=== PATIENT | female | born 1960 | race Caucasian/White ===

== ENCOUNTER → 2017-04-14 | Outpatient (CLI) | payer OTHER ==
[~2017-04-14] MED LIST: ATOR10TA82 PO; CARI350T28 PO; CYAN100073 PO; ESCI10TA17 PO; KETO200T PO; KLN/5 PO; LISI-461 PO; LISI20TA11 PO; METF-384 PO; METF500T5 PO; OXYC-57 PO; TERB250T22 PO
== END | disposition home or self-care (01) ==
LOC: C.LABSPEC 17:49
PROVIDERS: ATTEND Obstetrics & Gynecology
DX: N94.9 Unspecified condition associated with female genital organs and menstrual cycle (principal)

== ENCOUNTER → 2017-05-05 | Outpatient (CLI) | payer OTHER | END | disposition home or self-care (01) | LOC: C.LABSPEC 17:49 | PROVIDERS: ATTEND Obstetrics & Gynecology | DX: N76.0 Acute vaginitis (principal) ==

== ENCOUNTER 2017-06-22 19:10 | Emergency (ER) | payer OTHER ==
[~2017-06-22] VITALS: Ht 154.9 cm; Wt 64.9 kg
[2017-06-22 19:19] VITALS: TEMP 36.7; Ht 154.9 cm; Wt 64.9 kg
[2017-06-22] MEDS ORDERED: ALUMINUM/MAGNESIUM SUSP 30 ML UDC PO STA (20:00)
[2017-06-22] MEDS ORDERED: LIDOCAINE HCL 2% VISC SOLN 20 ML UDC PO STA (20:00)
[2017-06-22 20:25] LABS: BASO % 0.2 %; BASO ABS # 0.02 K/uL (0-0.2); EOS % 0.5 %; EOS ABS # 0.05 K/uL (0-0.5); HEMATOCRIT 41.2 % (37-47); HEMOGLOBIN 14.4 g/dL (12.0-16.0); IG# 0.01 K/uL (0.00-0.02); LYMPH % 29.3 %; LYMPH ABS # 2.93 K/uL (1.2-3.4); MEAN CELL VOLUME 88.4 fL (80-100); MEAN CORPUSCULAR HEMOGLOBIN 30.9 pg (25-34); MEAN PLATELET VOLUME 8.8 fL (7.4-10.4); NEUT % 63.9 %; PLATELET COUNT 320 K/uL (130-400); RED CELL DISTRIBUTION WIDTH CV 13.1 % (11.5-14.5); RED CELL DISTRIBUTION WIDTH SD 42.3 fL (36.4-46.3); WHITE BLOOD COUNT 10.01 K/uL (4.8-10.8)
[2017-06-22] MEDS ORDERED: CYAN100073 (20:36)
[2017-06-22] MEDS ORDERED: METF-384 PO (20:36)
[2017-06-22] MEDS ORDERED: CARI350T28 PO (20:36)
[2017-06-22] MEDS ORDERED: KETO200T PO (20:36)
[2017-06-22] MEDS ORDERED: CLON0.5T3 PO (20:36)
[2017-06-22] MEDS ORDERED: ATOR10TA82 PO (20:36)
[2017-06-22] MEDS ORDERED: TERB250T51 PO (20:36)
[2017-06-22] MEDS ORDERED: LISI-461 PO (20:36)
[2017-06-22 20:37] LABS: ALBUMIN 4.6 gm/dl (3.4-5.0); ALT/SGPT 36 U/L (12-78); AST/SGOT 17 U/L (15-37); BLOOD UREA NITROGEN 12 mg/dl (7-18); CALCIUM 9.6 mg/dl (8.5-10.1); CARBON DIOXIDE 29 mmol/L (21-32); CREATININE 0.79 mg/dl (0.60-1.20); GLUCOSE 119 mg/dl (70-99); LIPASE 146 U/L (73-393); POTASSIUM 3.8 mmol/L (3.5-5.1); PTT PATIENT 23.5 SECONDS (21.0-31.0); SODIUM 136 mmol/L (136-145)
[2017-06-22] MEDS ORDERED: OXYC-57 PO (20:37)
[2017-06-22 20:42] LABS: ALKALINE PHOSPHATASE 72 U/L (45-117); CKMB < 0.5 ng/ml (0.5-3.6); TOTAL PROTEIN 9.3 gm/dl (6.4-8.2)
--- NOTE | 2017-06-22 20:44 | DIAGNOSTIC IMAGING REPORT ---
CHEST ONE VIEW PORTABLE CLINICAL HISTORY: Evaluate Fever/Sepsis COMPARISON STUDY: No previous studies for comparison. FINDINGS: Lung volumes are normal. No pneumothorax or pleural effusion is noted. There is no consolidation or evidence for pulmonary edema. Cardiomediastinal silhouette is unremarkable. IMPRESSION: No acute cardiopulmonary findings. Electronically signed by: Stephon Sosa M.D. 06/22/2017 8:43 PM Dictated Date/Time: 06/22/2017 8:42 PM
--- NOTE | 2017-06-22 21:05 | EMERGENCY ROOM VISIT NOTE ---
History Report prepared by Vic: Angely Veronica Under the Supervision of: Dr. Andres Peace D.O. First contact with patient: 19:59 Chief Complaint: CHEST PAIN Stated Complaint: CHEST PAIN Nursing Triage Summary: see triage note. History of Present Illness The patient is a 56 year old female who presents to the Emergency Room with complaints of worsening chest pain starting a week and a half ago. The patient states that she started to feel the chest pain after dinner one night while lying on the couch. She states that it went from one shoulder to the other. She states that at the time she had ear pain and a sore throat that she thought was just a cold. She reports that she took Airborne which offered relief for her ear and throat. The patient states that she took her anxiety medication for the chest pain which offered no relief. She states that she went to the [facility] the next day because the chest pain started to radiate to her back and neck. She reports that they thought that she had a virus or GERD. The patient states that she was given an inhaler to try, which offered no relief, and told to start Zantac. She states that she has been taking Zantac for 6 days once a day before dinner. She reports that it helped the first two nights she took it, but doesn't help anymore. She states that it has since worsened and that is why she came to the ED tonight. She currently describes the pain as a tightness. The patient reports that the neck and back pain come with the chest pain. She notes that last night it woke her up out of her sleep and "felt like someone was choking her." The patient complains of a sore throat, hoarse voice, neck pain, back pain, nausea, and dizziness. The patient notes that she has been sleeping elevated and has a GI appointment in 3 weeks. Source of History: patient Onset: a week and a half ago Position: chest Quality: other (tightness) Timing: worsening Modifying Factors (Relieving): other (Airborne, Zantac) Associated Symptoms: + sorethroat, + neck pain, + nausea, + back pain Note: The patient complains of a hoarse voice and dizziness. Review of Systems See HPI for pertinent positives & negatives. A total of 10 systems reviewed and were otherwise negative. Past Medical & Surgical Medical Problems: (1) Diabetes (2) HTN (hypertension) Surgical Problems: (1) History of cholecystectomy (2) Hx of section Family History Diabetes mellitus Heart disease Hypertension Social History Smoking Status: Never Smoker Smokeless Tobacco Use: No Alcohol Use: none Marital Status: Housing Status: lives with family Occupation Status: employed Current/Historical Medications Scheduled Atorvastatin (Lipitor), 10 MG PO DAILY Carisoprodol (Soma), 175 MG PO HS Clonazepam (Klonopin), 0.5 MG PO DAILY Ketoconazole (Nizoral), 50 MG PO BID Lisinopril (Zestril), Unknown Dose PO DAILY Metformin Hcl (Glucophage), 500 MG PO BID Terbinafine Hcl (Lamisil), 125 MG PO DAILY Scheduled PRN Oxycodone/Acetaminophen 5MG/325MG (Percocet 5MG/325MG), 0.5 TABLET PO UD PRN for Pain Miscellaneous Medications Cyanocobalamin (B12) Allergies Coded Allergies: Amoxicillin (Unverified Allergy, Unknown, hives, 06/22/17) Iodine (Unverified Allergy, Unknown, vomiting, 06/22/17) Penicillins (Unverified Allergy, Unknown, hives, 06/22/17) Shellfish (Unverified Allergy, Unknown, vomiting, 06/22/17) Uncoded Allergies: IODINE (Allergy, Unknown, 05/25/02) N (Allergy, Unknown, 05/25/02) NO (Allergy, Unknown, 05/25/02) PCN AMOXICILLIN IBUPROFEN (Allergy, Unknown, 05/25/02) SHELLFISH IODINE (Allergy, Unknown, 05/25/02) Physical Exam Vital Signs Date Time Temp Pulse Resp B/P (MAP) Pulse Ox O2 Delivery O2 Flow Rate FiO2 06/22/17 21:20 89 18 153/84 99 Room Air 06/22/17 20:21 80 06/22/17 20:18 78 18 137/80 96 Room Air 06/22/17 19:19 36.7 92 18 144/89 99 Room Air Physical Exam CONSTITUTIONAL/VITAL SIGNS: Reviewed / noted above. GENERAL: Non-toxic in appearance. INTEGUMENTARY: Warm, dry, and [place]. HEAD: Normocephalic. EYES: without scleral icterus or trauma. ENT/OROPHARYNX: clear and moist. LYMPHADENOPATHY/NECK: Is supple without lymphadenopathy or meningismus. RESPIRATORY: Lungs clear and equal. CARDIOVASCULAR: Regular rate and rhythm. GI/ABDOMEN: Soft and nontender. No organomegaly or pulsatile mass. No rebound or guarding. Normal bowel sounds. EXTREMITIES: Warm and well perfused. BACK: No CVA tenderness. NEUROLOGICAL: Intact without focal deficits. PSYCHIATRIC: normal affect. MUSCULOSKELETAL: Normally developed with good muscle tone. Medical Decision & Procedures ER Provider Diagnostic Interpretation: Radiology results as stated below per my review and radiologist interpretation: CHEST ONE VIEW PORTABLE CLINICAL HISTORY: Evaluate Fever/Sepsis COMPARISON STUDY: No previous studies for comparison. FINDINGS: Lung volumes are normal. No pneumothorax or pleural effusion is noted. There is no consolidation or evidence for pulmonary edema. Cardiomediastinal silhouette is unremarkable. IMPRESSION: No acute cardiopulmonary findings. Electronically signed by: Stephon Sosa M.D. 06/22/2017 8:43 PM Dictated Date/Time: 06/22/2017 8:42 PM Laboratory Results 06/22/17 20:06 Red Blood Count 4.66, Mean Corpuscular Volume 88.4, Mean Corpuscular Hemoglobin 30.9, Mean Corpuscular Hemoglobin Concent 35.0, Mean Platelet Volume 8.8, Neutrophils (%) (Auto) 63.9, Lymphocytes (%) (Auto) 29.3, Monocytes (%) (Auto) 6.0, Eosinophils (%) (Auto) 0.5, Basophils (%) (Auto) 0.2, Neutrophils # (Auto) 6.40, Lymphocytes # (Auto) 2.93, Monocytes # (Auto) 0.60, Eosinophils # (Auto) 0.05, Basophils # (Auto) 0.02 06/22/17 20:06 Test 06/22/17 20:06 White Blood Count 10.01 K/uL (4.8-10.8) Red Blood Count 4.66 M/uL (4.2-5.4) Hemoglobin 14.4 g/dL (12.0-16.0) Hematocrit 41.2 % (37-47) Mean Corpuscular Volume 88.4 fL (80-100) Mean Corpuscular Hemoglobin 30.9 pg (25-34) Mean Corpuscular Hemoglobin Concent 35.0 g/dl (32-36) Platelet Count 320 K/uL (130-400) Mean Platelet Volume 8.8 fL (7.4-10.4) Neutrophils (%) (Auto) 63.9 % Lymphocytes (%) (Auto) 29.3 % Monocytes (%) (Auto) 6.0 % Eosinophils (%) (Auto) 0.5 % Basophils (%) (Auto) 0.2 % Neutrophils # (Auto) 6.40 K/uL (1.4-6.5) Lymphocytes # (Auto) 2.93 K/uL (1.2-3.4) Monocytes # (Auto) 0.60 K/uL (0.11-0.59) Eosinophils # (Auto) 0.05 K/uL (0-0.5) Basophils # (Auto) 0.02 K/uL (0-0.2) RDW Standard Deviation 42.3 fL (36.4-46.3) RDW Coefficient of Variation 13.1 % (11.5-14.5) Immature Granulocyte % (Auto) 0.1 % Immature Granulocyte # (Auto) 0.01 K/uL (0.00-0.02) Prothrombin Time 10.9 SECONDS (9.0-12.0) Prothromb Time International Ratio 1.0 (0.9-1.1) Activated Partial Thromboplast Time 23.5 SECONDS (21.0-31.0) Partial Thromboplastin Ratio 0.9 Anion Gap 7.0 mmol/L (3-11) Est Creatinine Clear Calc Drug Dose 69.4 ml/min Estimated GFR () 97.7 Estimated GFR (Non- 84.3 BUN/Creatinine Ratio 15.4 (10-20) Calcium Level 9.6 mg/dl (8.5-10.1) Total Bilirubin 0.2 mg/dl (0.2-1) Direct Bilirubin < 0.1 mg/dl (0-0.2) Aspartate Amino Transf (AST/SGOT) 17 U/L (15-37) Alanine Aminotransferase (ALT/SGPT) 36 U/L (12-78) Alkaline Phosphatase 72 U/L (45-117) Total Creatine Kinase 40 U/L (26-192) Creatine Kinase MB < 0.5 ng/ml (0.5-3.6) Creatine Kinase MB Ratio (0-3.0) Troponin I < 0.015 ng/ml (0-0.045) Total Protein 9.3 gm/dl (6.4-8.2) Albumin 4.6 gm/dl (3.4-5.0) Lipase 146 U/L (73-393) Laboratory results as stated above per my review. Medications Administered Medications (Trade) Dose Ordered Sig/Gracy Route Start Time Stop Time Status Last Admin Dose Admin Al Hydroxide/Mg Hydroxide (Maalox Susp) 30 ml NOW STAT PO 06/22/17 20:00 06/22/17 20:02 DC 06/22/17 20:32 30 ML Lidocaine HCl (Viscous Lidocaine 2% Soln) 10 ml NOW STAT PO 06/22/17 20:00 06/22/17 20:02 DC 06/22/17 20:32 10 ML Morphine Sulfate (MoRPHine SULFATE INJ) 4 mg NOW STAT IV 06/22/17 21:13 06/22/17 21:14 DC 06/22/17 21:20 4 MG ECG Per My Interpretation Indication: chest pain Rate (beats per minute): 85 Rhythm: normal sinus Findings: no ectopy, other (no ST elevations) ED Course 2001: Previous medical records were reviewed. The patient was evaluated in room C8. A complete history and physical examination was performed. 1999: Ordered Lidocaine HCl 10 ml PO, Maalox Susp 30 ml PO. 2103: On reevaluation, the patient is about the same. I discussed the results and findings with the patient. She verbalized agreement of the treatment plan. She was discharged home. 2112: Ordered Morphine Sulfate 4 mg IV. Medical Decision Differentials considered include acute myocardial infarction, acute coronary syndrome, myocarditis, pericarditis, pericardial effusions /tamponade, esophageal perforation, thoracic aortic dissection, pulmonary embolism, pneumonia, pneumothorax, pancreatitis, shingles, acute cholecystitis, and perforated abdominal viscus. This is a 56-year-old female who presents to the ED with a chief complaint of chest discomfort. The patient reports the chest discomfort radiating from her epigastric area into her throat. She also reports a sore throat and some hoarseness in her voice when she talks too much. She also reported some associated neck pain when she gets the same pain. She saw her PCP and has been on Zantac for the past 5 days or so. Her symptoms seem to be worse at night. She also reported a little bit of dizziness. The patient has some mild hypertension on her initial evaluation. Her physical exam was unremarkable. She has no lymphadenopathy in her oropharynx was clear. Lungs are clear. An EKG shows a normal sinus rhythm. CBC and complete metabolic panel were normal, troponin was negative lipase was negative and a chest x-ray did not show acute process. Patient was treated with a GI cocktail. She was told the results of the test. She will continue Zantac. She does have an appointment to see a GI specialist in 3 weeks. Did recommend elevation of the head of the bed when sleeping. Medication Reconcilliation Current Medication List: was personally reviewed by me Blood Pressure Screening Patient's blood pressure: Elevated blood pressure Blood pressure disposition: Referred to PCP Impression Primary Impression: Substernal precordial chest pain Scribe Attestation The scribe's documentation has been prepared under my direction and personally reviewed by me in its entirety. I confirm that the note above accurately reflects all work, treatment, procedures, and medical decision making performed by me. Departure Information Dispostion Home / Self-Care Referrals Agustina Combs PA-C (PCP) Forms Call Back Authorization, HOME CARE DOCUMENTATION FORM, IMPORTANT VISIT INFORMATION Patient Instructions My [facility] Additional Instructions Continue Zantac. Follow-up with your doctor for further care and evaluation in 1-2 days. Return to the emergency department for worsening or new symptoms or any concerns. You have been examined and treated today on an emergency basis only. This is not a substitute for, or an effort to provide, complete comprehensive medical care. It is impossible to recognize and treat all injuries or illnesses in a single emergency department visit. It is therefore important that you follow up closely with your doctor. Call as soon as possible for an appointment.
[2017-06-22] MEDS ORDERED: MoRPHine SULFATE 4 MG/ML 1 ML CARP\\VIAL IV STA (21:13)
[2017-06-22 22:14] VITALS: BP 146/74; PULSE 85; O2SAT 99
== END 2017-06-22 22:16 | disposition home or self-care (01) ==
LOC: C.EDB 19:12 → C.EDC 22:16
DX: R07.2 Precordial pain (principal); J02.9 Acute pharyngitis, unspecified; I10 Essential (primary) hypertension; E11.9 Type 2 diabetes mellitus without complications; Z79.84 Long term (current) use of oral hypoglycemic drugs; Z90.49 Acquired absence of other specified parts of digestive tract; Z83.3 Family history of diabetes mellitus; Z82.49 Family history of ischemic heart disease and other diseases of the circulatory system; Z88.1 Allergy status to other antibiotic agents; Z88.0 Allergy status to penicillin; Z91.013 Allergy to seafood

== ENCOUNTER → 2017-07-14 | Day surgery (SDC) | payer OTHER ==
[2017-07-07 13:05] VITALS: Ht 154.9 cm; Wt 61.8 kg
[~2017-07-14] VITALS: Ht 154.9 cm; Wt 61.8 kg
[~2017-07-14] MED LIST changes: +CLON0.5T3 PO; -KETO200T PO; -KLN/5 PO; +LIDOCAINE HCL 2% 2 ML VIAL (20MG/ML) ONE; -LISI-461 PO; -LISI20TA11 PO; +LSN/2025 PO; -METF-384 PO; +MIDAZOLAM HCL 1 MG/ML 2ML VIAL ONE; +PROPOFOL IV EMULSION 10 MG/ML 20 ML VIAL IV ONE; -TERB250T22 PO; +TERB250T51 PO
--- NOTE | 2017-07-14 14:19 | Endo History and Physical ---
History & Physical Date of Service: Jul 14, 2017. Chief Complaint: atypical chest pain/Joiner Referring Physician: Agustina Mchugh History of Present Illness For EGD with Joiner Past Surgical History Hx Cardiac Surgery: No Hx Internal Defibrillator: No Hx Pacemaker: No Hx Abdominal Surgery: Yes (LILIBETH, ) Hx of Implantable Prosthesis: No Hx Post-Op Nausea and Vomiting: Yes Hx Cancer Surgery: No Hx Thoracic Surgery: No Hx Orthopedic: No Hx Urinary Tract Surgery: No Family History None Social History Smoking Status: Never Smoker Hx Substance Use: No Hx Alcohol Use: No Allergies Coded Allergies: Amoxicillin (Verified Allergy, Unknown, hives, 07/14/17) Iodine (Verified Allergy, Unknown, vomiting, 07/14/17) Oxaprozin (Verified Allergy, Unknown, RASH, 07/07/17) CAN TOLERATE IBUPROFEN Penicillins (Verified Allergy, Unknown, RASH, 07/07/17) Shellfish (Verified Allergy, Unknown, vomiting, 07/14/17) Current Medications Reported Home Medications Medications Dose Route/Sig Max Daily Dose Days Date Category Dose Instructions Lexapro (Escitalopram Oxalate) 10 Mg Tab 10 Mg PO DAILY WITH DINNER 07/07/17 Reported Percocet 5MG/325MG (Oxycodone/Acetaminophen) Tab 0.5 Tablets PO Q4H PRN 07/07/17 Reported PAIN Glucophage Er (Metformin HCl) 500 Mg Tab 2 Tab PO BID 07/07/17 Reported Lisinopril/Hctz 20/25 Mg (HCTZ/Lisinopril) 1 Ea Tab 1 Tab PO QAM 07/07/17 Reported B12 (Cyanocobalamin) 1,000 Mcg Tab 1 Tab PO QPM 06/22/17 Reported Soma (Carisoprodol) 350 Mg Tab 0.5 Tab PO HS PRN 06/22/17 Reported Klonopin (Clonazepam) 0.5 Mg Tab 0.5 Mg PO QAM 06/22/17 Reported PRN DOSE 0.5 TAB AT HS Lamisil (Terbinafine Hcl) 250 Mg Tab 125 Mg PO HS 30 06/22/17 Reported Lipitor (Atorvastatin Calcium) 10 Mg Tab 10 Mg PO QAM 06/22/17 Reported CURRENTLY ON HOLD Vital Signs Weight (Kilograms): 61.82 Height (Feet): 5 Height (Inches): 1 Date Time Temp Pulse Resp B/P (MAP) Pulse Ox O2 Delivery O2 Flow Rate FiO2 07/14/17 14:04 37 69 18 134/82 (99) 96 Room Air Physical Exam General Appearance: + obese Respiratory/Chest: Respiratory effort: no dyspnea Cardiovascular: Heart Auscultation: RRR Abdomen: Inspection & Palpation: soft Assessment and Plan Atypical chest pain for EGD with Joiner
--- NOTE | 2017-07-14 15:03 | Discharge Instructions ---
Endoscopy Patient Instructions Date / Procedure(s) Performed Jul 14, 2017. EGD Allergy Information Coded Allergies: Amoxicillin (Verified Allergy, Unknown, hives, 07/14/17) Iodine (Verified Allergy, Unknown, vomiting, 07/14/17) Oxaprozin (Verified Allergy, Unknown, RASH, 07/07/17) CAN TOLERATE IBUPROFEN Penicillins (Verified Allergy, Unknown, RASH, 07/07/17) Shellfish (Verified Allergy, Unknown, vomiting, 07/14/17) Discharge Date / Findings Jul 14, 2017. Joiner placed Medication Instructions Stopped Medication(s): Metformin Restart Stopped Medication(s): No acid reducing meds for 2 days Reported Home Medications Medications Dose Route/Sig Max Daily Dose Days Date Category Dose Instructions Lexapro (Escitalopram Oxalate) 10 Mg Tab 10 Mg PO DAILY WITH DINNER 07/07/17 Reported Percocet 5MG/325MG (Oxycodone/Acetaminophen) Tab 0.5 Tablets PO Q4H PRN 07/07/17 Reported PAIN Glucophage Er (Metformin HCl) 500 Mg Tab 2 Tab PO BID 07/07/17 Reported Lisinopril/Hctz 20/25 Mg (HCTZ/Lisinopril) 1 Ea Tab 1 Tab PO QAM 07/07/17 Reported B12 (Cyanocobalamin) 1,000 Mcg Tab 1 Tab PO QPM 06/22/17 Reported Soma (Carisoprodol) 350 Mg Tab 0.5 Tab PO HS PRN 06/22/17 Reported Klonopin (Clonazepam) 0.5 Mg Tab 0.5 Mg PO QAM 06/22/17 Reported PRN DOSE 0.5 TAB AT HS Lamisil (Terbinafine Hcl) 250 Mg Tab 125 Mg PO HS 30 06/22/17 Reported Lipitor (Atorvastatin Calcium) 10 Mg Tab 10 Mg PO QAM 06/22/17 Reported CURRENTLY ON HOLD Provider Instructions Activity Restrictions - No exercising or heavy lifting for 24 hours. - Do not drink alcohol the day of the procedure. - Do not drive a car or operate machinery until the day after the procedure. - Do not make any important decisions or sign important papers in 24 hours after the procedure. Following Day: - Return to full activity which may include returning to work/school. Diet Start your diet with liquids and light foods (jello, soup, juice, toast). Then eat your usual diet if not nauseated. Treatment For Common After Affects For mild abdominal pain, bloating, or excessive gas: - Rest - Eat lightly - Lie on right side Follow-Up Information Follow-up with Agustina Mchugh as scheduled Anesthesia Information What You Should Know You have had a procedure that required some medicine to reduce anxiety and discomfort. This treatment is called moderate sedation. After receiving the treatment, you may be sleepy, but you will be able to breathe on your own. The effects of the treatment may last for several hours. Follow these instructions along with Activity/Diet recommendations noted above: * Do NOT do anything where dizziness or clumsiness would be dangerous. * Rest quietly at home today, then you can be up and about tomorrow. * Have a responsible person stay with you the rest of today. * You may have had an I.V. today. If so, you may take the dressing off later today. Recommendations Call your doctor if: * Trouble breathing * Continuous vomiting for more than 24 hours * Temperature above 101 degrees * Severe abdominal pain or bloating * Pain not relieved by pain medicine ordered * There is increased drainage or redness from any incision * A large amount of rectal bleeding greater than 2-3 tablespoons. (If you had a polyp/s removed or have hemorrhoids, a small amount of blood - from the rectum is to be expected.) * You have any unanswered questions or concerns. IN THE EVENT OF A SERIOUS EMERGENCY, GO TO THE NEAREST EMERGENCY ROOM Your discharge instructions were prepared by provider Champ Savage. Patient Instructions Signature Page Terence Mcgregor Patient (or Guardian) Signature/Date: I have read and understand the instructions given to me by my caregivers. Caregiver/RN/Doctor Signature/Date: The above-named patient and/or guardian has received patient instructions on this date. + Original Patient Signature Page (only) stays with chart. Please make copy for patient.
--- NOTE | 2017-07-14 15:08 | GI REPORT ---
Procedure Date: 07/14/2017 2:21 PM Procedure: Upper GI endoscopy Indications: Chest pain (non cardiac) Medicines: Midazolam 2 mg IV, Propofol total dose 240 mg IV, Lidocaine 80 mg IV Complications: No immediate complications. Estimated Blood Loss: Estimated blood loss: none. Procedure: Pre-Anesthesia Assessment: - Prior to the procedure, a History and Physical was performed, and patient medications, allergies and sensitivities were reviewed. The patient's tolerance of previous anesthesia was reviewed. - The risks and benefits of the procedure and the sedation options and risks were discussed with the patient. All questions were answered and informed consent was obtained. After obtaining informed consent, the endoscope was passed under direct vision. Throughout the procedure, the patient's blood pressure, pulse, and oxygen saturations were monitored continuously. The Scope was introduced through the mouth, and advanced to the second part of duodenum. The upper GI endoscopy was accomplished without difficulty. The patient tolerated the procedure well. Findings: The Z-line was regular and was found 40 cm from the incisors. The GUNN capsule with delivery system was introduced through the mouth and advanced into the esophagus, such that the GUNN pH capsule was positioned 34 cm from the incisors, which was 6 cm proximal to the GE junction. The GUNN pH capsule was then deployed and attached to the esophageal mucosa. The delivery system was then withdrawn. Endoscopy was utilized for probe placement and diagnostic evaluation. The entire examined stomach was normal. Two localized erosions were found in the duodenal bulb. Impression: - Z-line regular, 40 cm from the incisors. - Normal stomach. - Duodenal erosions. - The GUNN pH capsule was deployed. - No specimens collected. Recommendation: - Discharge patient to home (ambulatory). - Return to GI office as previously scheduled. Champ Savage M.D. Champ Savage MD 07/14/2017 3:08:04 PM This report has been signed electronically. Note Initiated On: 07/14/2017 2:21 PM I attest to the content of the Intraoperative Record and orders documented therein, exceptions below
--- NOTE | 2017-07-14 15:10 | Anesthesiology Progress Note ---
Anesthesia Post Op Note Date & Time Jul 14, 2017 at 15:10 Vital Signs Pain Intensity: 7 Vital Signs Past 12 Hours Date Time Temp Pulse Resp B/P (MAP) Pulse Ox O2 Delivery O2 Flow Rate FiO2 07/14/17 14:04 37 69 18 134/82 (99) 96 Room Air Notes Mental Status: alert / awake / arousable, participated in evaluation Pt Amnestic to Procedure: Yes Nausea / Vomiting: adequately controlled Pain: adequately controlled Airway Patency, RR, SpO2: stable & adequate BP & HR: stable & adequate Hydration State: stable & adequate Anesthetic Complications: no major complications apparent
[2017-07-14 15:38] VITALS: BP 131/69; PULSE 72; O2SAT 98
== END | disposition home or self-care (01) ==
LOC: C.GI 13:34
PROVIDERS: ATTEND Internal Medicine Gastroenterology
DX: R07.89 Other chest pain (principal); I10 Essential (primary) hypertension; K21.9 Gastro-esophageal reflux disease without esophagitis; M19.90 Unspecified osteoarthritis, unspecified site; F32.9 Major depressive disorder, single episode, unspecified; Z88.0 Allergy status to penicillin; Z91.013 Allergy to seafood; Z90.49 Acquired absence of other specified parts of digestive tract

== ENCOUNTER → 2017-11-24 | Outpatient (CLI) | payer OTHER ==
[~2017-11-24] MED LIST changes: -CLON0.5T3 PO; +KLN/5 PO; -LIDOCAINE HCL 2% 2 ML VIAL (20MG/ML) ONE; +LISI20TA11 PO; -LSN/2025 PO; -MIDAZOLAM HCL 1 MG/ML 2ML VIAL ONE; -PROPOFOL IV EMULSION 10 MG/ML 20 ML VIAL IV ONE; +TERB250T22 PO; -TERB250T51 PO
--- NOTE | 2017-11-24 13:57 | DIAGNOSTIC IMAGING REPORT ---
GASTRIC EMPTYING HISTORY: Pain ABD BLOATING,GERD COMPARISON: None. TECHNIQUE: Following the oral administration of 1.1 mCi of technetium 99m sulfur colloid in egg sandwich and 8 ounces of water, static abdominal images are obtained anteriorly and posteriorly at 0 minutes, 1 hour, 2 hour, and 4 hour time intervals. Gastric emptying was calculated utilizing the geometric mean method. FINDINGS: There is approximately 89 % activity remaining at the 1 hour time interval (normal is less than 90%), 63 % remaining at the 2 hour time interval (normal is less than 60%), and 13 % activity remaining at the 4 hour time interval (normal is less than 10%). IMPRESSION: Findings consistent with mild gastric emptying delay. The above report was generated using voice recognition software. It may contain grammatical, syntax or spelling errors. Electronically signed by: Jesus Ziegler M.D. 11/24/2017 1:56 PM Dictated Date/Time: 11/24/2017 1:55 PM
== END | disposition home or self-care (01) ==
LOC: C.NUCL 09:10
PROVIDERS: ATTEND Registered Nurse
DX: R14.0 Abdominal distension (gaseous) (principal); R68.81 Early satiety; K21.9 Gastro-esophageal reflux disease without esophagitis; E11.9 Type 2 diabetes mellitus without complications

== ENCOUNTER → 2017-11-30 | Day surgery (SDC) | payer OTHER ==
[2017-11-25 10:28] VITALS: Ht 154.9 cm; Wt 65.5 kg
[~2017-11-30] VITALS: Ht 154.9 cm; Wt 65.5 kg
[~2017-11-30] MED LIST changes: -ESCI10TA17 PO; +LIDOCAINE HCL 2% 2 ML VIAL (20MG/ML) ONE; -OXYC-57 PO; +PROPOFOL IV EMULSION 10 MG/ML 20 ML VIAL ONE; +SODIUM CHLORIDE 0.9% 500ML 500 ML IV ONE; -TERB250T22 PO
--- NOTE | 2017-11-30 12:21 | Endo History and Physical ---
History & Physical Date of Service: Nov 30, 2017. Chief Complaint: gerd, early satiety Referring Physician: Dr. Kim History of Present Illness 57 yo CF who presents for EGD secondary to GERD and early satiety. Past Surgical History Hx Cardiac Surgery: No Hx Internal Defibrillator: No Hx Pacemaker: No Hx Abdominal Surgery: Yes (LILIBETH, ) Hx of Implantable Prosthesis: No Hx Post-Op Nausea and Vomiting: No Hx Cancer Surgery: No Hx Thoracic Surgery: No Hx Orthopedic: No Hx Urinary Tract Surgery: No Family History Colon CA Social History Smoking Status: Never Smoker Hx Substance Use: Yes (KLONOPIN PRN) Hx Alcohol Use: No Allergies Coded Allergies: Amoxicillin (Verified Allergy, Unknown, hives, 11/30/17) Iodine (Verified Allergy, Unknown, vomiting, 11/30/17) Oxaprozin (Verified Allergy, Unknown, RASH, 11/30/17) CAN TOLERATE IBUPROFEN Penicillins (Verified Allergy, Unknown, RASH, 11/30/17) Shellfish (Verified Allergy, Unknown, vomiting, 11/30/17) Current Medications Reported Home Medications Medications Dose Route/Sig Max Daily Dose Days Date Category Dose Instructions Glucophage Er (Metformin HCl) 500 Mg Tab 1 Tab PO BID 07/07/17 Reported Lisinopril/Hctz 20/25 Mg (HCTZ/Lisinopril) 1 Ea Tab 1 Tab PO QAM 07/07/17 Reported B12 (Cyanocobalamin) 1,000 Mcg Tab 1 Tab PO QPM 06/22/17 Reported Soma (Carisoprodol) 350 Mg Tab 0.5 Tab PO HS PRN 06/22/17 Reported Klonopin (Clonazepam) 0.5 Mg Tab 0.5 Mg PO DAILY PRN 06/22/17 Reported PRN DOSE 0.5 TAB AT HS Lipitor (Atorvastatin Calcium) 10 Mg Tab 10 Mg PO QAM 06/22/17 Reported Vital Signs Weight (Kilograms): 65.45 Height (Feet): 5 Height (Inches): 1 Date Time Temp Pulse Resp B/P (MAP) Pulse Ox O2 Delivery O2 Flow Rate FiO2 11/30/17 11:43 36.6 69 20 143/84 (103) 99 Room Air Physical Exam General Appearance: WD/WN, no apparent distress Respiratory/Chest: Auscultation: breath sounds normal Cardiovascular: Heart Auscultation: RRR Abdomen: Bowel Sounds: normal Inspection & Palpation: soft, non-distended, no tenderness, guarding & rebound Assessment and Plan Assessment: 57 yo CF who presents for EGD secondary to GERD and early satiety. Plan: Proceed with EGD.
--- NOTE | 2017-11-30 12:39 | GI REPORT ---
Patient Name: Terence Mcgregor Procedure Date: 11/30/2017 12:04 PM Date of : 1960 Admit Type: Outpatient Age: 57 Gender: Female Attending MD: Krzysztof Bragg DO Procedure: Upper GI endoscopy Providers: Krzysztof Bragg DO Referring MD: Pippa Armas Indications: Suspected gastro-esophageal reflux disease, Early satiety Medicines: Monitored Anesthesia Care Complications: No immediate complications. Estimated Blood Loss: Estimated blood loss: none. Procedure: Pre-Anesthesia Assessment: - Prior to the procedure, a History and Physical was performed, and patient medications and allergies were reviewed. The patient's tolerance of previous anesthesia was also reviewed. The risks and benefits of the procedure and the sedation options and risks were discussed with the patient. All questions were answered, and informed consent was obtained. Prior Anticoagulants: The patient has taken no previous anticoagulant or antiplatelet agents. ASA Grade Assessment: II - A patient with mild systemic disease. After reviewing the risks and benefits, the patient was deemed in satisfactory condition to undergo the procedure. After obtaining informed consent, the endoscope was passed under direct vision. Throughout the procedure, the patient's blood pressure, pulse, and oxygen saturations were monitored continuously. The scope was introduced through the mouth, and advanced to the second part of duodenum. The upper GI endoscopy was accomplished without difficulty. The patient tolerated the procedure well. Findings: The esophagus was normal. Localized mild inflammation characterized by erythema was found in the gastric antrum. Biopsies were taken with a cold forceps for histology. The examined duodenum was normal. Impression: - Normal esophagus. - Gastritis. Biopsied. - Normal examined duodenum. Recommendation: - Low fat diet and low residue diet with six small meals per day. - Continue present medications. - Await pathology results. - Return to primary care physician as previously scheduled. Krzysztof Bragg DO 11/30/2017 12:39:19 PM This report has been signed electronically. Note Initiated On: 11/30/2017 12:04 PM Number of Addenda: 0 I attest to the content of the Intraoperative Record and orders documented therein, exceptions below {[id number]}
--- NOTE | 2017-11-30 12:41 | Discharge Instructions ---
Endoscopy Patient Instructions Date / Procedure(s) Performed Nov 30, 2017. EGD Allergy Information Coded Allergies: Amoxicillin (Verified Allergy, Unknown, hives, 11/30/17) Iodine (Verified Allergy, Unknown, vomiting, 11/30/17) Oxaprozin (Verified Allergy, Unknown, RASH, 11/30/17) CAN TOLERATE IBUPROFEN Penicillins (Verified Allergy, Unknown, RASH, 11/30/17) Shellfish (Verified Allergy, Unknown, vomiting, 11/30/17) Discharge Date / Findings Nov 30, 2017. Mild gastritis s/p biopsies Medication Instructions OK to resume all medications today as prescribed Reported Home Medications Medications Dose Route/Sig Max Daily Dose Days Date Category Dose Instructions Glucophage Er (Metformin HCl) 500 Mg Tab 1 Tab PO BID 07/07/17 Reported Lisinopril/Hctz 20/25 Mg (HCTZ/Lisinopril) 1 Ea Tab 1 Tab PO QAM 07/07/17 Reported B12 (Cyanocobalamin) 1,000 Mcg Tab 1 Tab PO QPM 06/22/17 Reported Soma (Carisoprodol) 350 Mg Tab 0.5 Tab PO HS PRN 06/22/17 Reported Klonopin (Clonazepam) 0.5 Mg Tab 0.5 Mg PO DAILY PRN 06/22/17 Reported PRN DOSE 0.5 TAB AT HS Lipitor (Atorvastatin Calcium) 10 Mg Tab 10 Mg PO QAM 06/22/17 Reported Provider Instructions Activity Restrictions - No exercising or heavy lifting for 24 hours. - Do not drink alcohol the day of the procedure. - Do not drive a car or operate machinery until the day after the procedure. - Do not make any important decisions or sign important papers in 24 hours after the procedure. Following Day: - Return to full activity which may include returning to work/school. Diet Start your diet with liquids and light foods (jello, soup, juice, toast). Then eat your usual diet if not nauseated. Treatment For Common After Affects For mild abdominal pain, bloating, or excessive gas: - Rest - Eat lightly - Lie on right side Follow-Up Information Follow-up with Dr. Kim as scheduled Anesthesia Information What You Should Know You have had a procedure that required some medicine to reduce anxiety and discomfort. This treatment is called moderate sedation. After receiving the treatment, you may be sleepy, but you will be able to breathe on your own. The effects of the treatment may last for several hours. Follow these instructions along with Activity/Diet recommendations noted above: * Do NOT do anything where dizziness or clumsiness would be dangerous. * Rest quietly at home today, then you can be up and about tomorrow. * Have a responsible person stay with you the rest of today. * You may have had an I.V. today. If so, you may take the dressing off later today. Recommendations Call your doctor if: * Trouble breathing * Continuous vomiting for more than 24 hours * Temperature above 101 degrees * Severe abdominal pain or bloating * Pain not relieved by pain medicine ordered * There is increased drainage or redness from any incision * A large amount of rectal bleeding greater than 2-3 tablespoons. (If you had a polyp/s removed or have hemorrhoids, a small amount of blood - from the rectum is to be expected.) * You have any unanswered questions or concerns. IN THE EVENT OF A SERIOUS EMERGENCY, GO TO THE NEAREST EMERGENCY ROOM Your discharge instructions were prepared by provider Krzysztof Bragg. Patient Instructions Signature Page Terence Mcgregor Patient (or Guardian) Signature/Date: I have read and understand the instructions given to me by my caregivers. Caregiver/RN/Doctor Signature/Date: The above-named patient and/or guardian has received patient instructions on this date. + Original Patient Signature Page (only) stays with chart. Please make copy for patient.
--- NOTE | 2017-11-30 13:00 | Anesthesiology Progress Note ---
Anesthesia Post Op Note Date & Time Nov 30, 2017 at 13:00 Vital Signs Pain Intensity: 0 Vital Signs Past 12 Hours Date Time Temp Pulse Resp B/P (MAP) Pulse Ox O2 Delivery O2 Flow Rate FiO2 11/30/17 12:40 67 18 113/55 (74) 97 Room Air 11/30/17 11:43 36.6 69 20 143/84 (103) 99 Room Air Notes Mental Status: alert / awake / arousable, participated in evaluation Pt Amnestic to Procedure: Yes Nausea / Vomiting: adequately controlled Pain: adequately controlled Airway Patency, RR, SpO2: stable & adequate BP & HR: stable & adequate Hydration State: stable & adequate Anesthetic Complications: no major complications apparent
[2017-11-30 13:10] VITALS: BP 116/64; PULSE 69; O2SAT 97
== END | disposition home or self-care (01) ==
LOC: C.GI 10:49
PROVIDERS: ATTEND Internal Medicine
DX: K21.9 Gastro-esophageal reflux disease without esophagitis (principal); K29.50 Unspecified chronic gastritis without bleeding; R68.81 Early satiety; K30 Functional dyspepsia; I10 Essential (primary) hypertension; E11.9 Type 2 diabetes mellitus without complications; Z90.49 Acquired absence of other specified parts of digestive tract; Z88.0 Allergy status to penicillin; Z88.1 Allergy status to other antibiotic agents; Z91.013 Allergy to seafood